=== PATIENT | male | born 1945 | race Caucasian/White ===

== ENCOUNTER 2023-01-24 07:23 | Day surgery (SDC) | payer MEDICARE ==
[2023-01-23 10:49] VITALS: BMI 27.1
[~2023-01-24 07:23] MED LIST: EPINEPHrine 0.3 MG in Ophthalmic Irrigation Solution 500 ML IRR SCH
[2023-01-24] MEDS ORDERED: Cyclopentolate 1% Opth Drop 2 ML BOT ONE (08:06)
[2023-01-24] MEDS ORDERED: PHENYLephrine 2.5% Ophth Soln 15 ml Bottle ONE (08:06)
[2023-01-24] MEDS ORDERED: fentaNYL 50 mcg/mL 1 mL Vial ONE (09:13)
[2023-01-24] MEDS ORDERED: CEFAZOLIN 1 GM VIAL ONE (09:22)
[2023-01-24] MEDS ORDERED: Lidocaine 1% PF 5 ML VIAL ONE (09:22)
[2023-01-24] MEDS ORDERED: Triamcinolone 40 MG/ML VIAL ONE (09:22)
[2023-01-24] MEDS ORDERED: Lidocaine 4% PF 5 ML AMP ONE (09:22)
[2023-01-24] MEDS ORDERED: Maxitrol 0.1% Opth Oint 3.5 GM TUBE ONE (09:22)
[2023-01-24] MEDS ORDERED: Bupivacaine 0.75% 10 ML VIAL ONE (09:22)
[2023-01-24] MEDS ORDERED: PROPOFOL 200 MG/20 ML VIAL ONE (09:22)
[2023-01-24] MEDS ORDERED: Indocyanine Green 25 MG/10 ML VIAL ONE (09:22)
== END 2023-01-24 10:40 | disposition home or self-care (01) ==
LOC: SDC 07:23
PROVIDERS: ATTEND Ophthalmology Retina Specialist
PROC: 08T43ZZ Resection of Right Vitreous, Percutaneous Approach (ICD-10-PCS; principal; 2023-01-24)
PROC: 08NE3ZZ Release Right Retina, Percutaneous Approach (ICD-10-PCS; 2023-01-24)
DX: H35.371 Puckering of macula, right eye (principal)
CPT/HCPCS: 67042; 82962; J3010; 36416; J0171; J0690; J2704; J3301; J3490